=== PATIENT | male | born 1960 | race Caucasian/White ===

== ENCOUNTER 2018-07-05 09:20 | Outpatient (CLI) | payer OTHER ==
--- NOTE | 2018-07-05 09:45 | RAD ---
FEXAM: Chest PA and lateral: HISTORY: Bronchitis. Shortness of breath COMPARISON: 05/01/2018 FINDINGS: Heart: Normal Aorta: Slightly elongated Pulmonary vessels: Normal Costophrenic angles: Costophrenic angles are clear. Lungs: No mass or consolidation. Hyperinflation with chronic changes. Pneumothorax: No pneumothorax Osseous structures: Redemonstration of fusion hardware in the distal cervical and upper thoracic spin e. IMPRESSION: No acute cardiopulmonary process. No significant interval change.
== END 2018-07-05 09:21 | disposition home or self-care (01) ==
LOC: SCSRAD 09:20
PROVIDERS: ATTEND Nurse Practitioner Family
DX: J40 Bronchitis, not specified as acute or chronic (principal)
CPT/HCPCS: 71046